=== PATIENT | male | born 1965 ===

== ENCOUNTER 2017-12-13 21:49 | Emergency (ER) | payer SELFPAY ==
[2017-12-13 22:02] VITALS: TEMP 98.4
[2017-12-13] MEDS ORDERED: Sodium Chloride 0.9% 1,000 ML IV STA (22:56)
[2017-12-13] MEDS ORDERED: Insulin Regular 100 units/ml IVP STA (22:56)
--- NOTE | 2017-12-13 23:03 | ED PDOC ---
HPI: Psych/Substance Abuse Time Seen by Provider: 12/13/17 22:22 Chief Complaint (Nursing): Alcohol Ingestion History Per: Patient, EMS Additional Complaint(s): As per triage report pt. was found lying down on a car intoxicated. Pt. admits to drinking beer. Pt. states he has a hx of DM but has not seen his doctor in 3 years as he and has been using only "natural medicine." Offers no complaints. 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 Physical Exam - Reviewed Nursing Documentation Reviewed: Yes Vital Signs Reviewed: Yes - Physical Exam Appears: Positive for: Well, Non-toxic, No Acute Distress Head Exam: Positive for: ATRAUMATIC, NORMAL INSPECTION, NORMOCEPHALIC Skin: Positive for: Normal Color, Warm, DRY Eye Exam: Positive for: EOMI. Negative for: PERRL (R pupil is abnormally shaped and is unreactive to light; L pupil is reactive to light), Nystagmus, Periorbital swelling, Periorbital tenderness, Conjunctival injection (b/l) ENT: Positive for: Normal ENT Inspection, TM Is/Are (no hemotympanum b/l) Neck: Positive for: Normal, Painless ROM Cardiovascular/Chest: Positive for: Regular Rate, Rhythm, Chest Non Tender Respiratory: Positive for: CNT, Normal Breath Sounds Gastrointestinal/Abdominal: Positive for: Normal Exam (no ecchymosis to abdomen) , Soft. Negative for: Tenderness, Guarding, Rebound, Asicites Back: Positive for: Normal Inspection. Negative for: L CVA Tenderness, R CVA Tenderness, Vertebral Tenderness Extremity: Positive for: Normal ROM Neurologic/Psych: Positive for: Alert, Oriented, Other (slurred speech; AOB). Negative for: Aphasia, Facial Droop - Laboratory Results Result Diagrams: 12/13/17 23:20 12/13/17 23:20 - ECG O2 Sat by Pulse Oximetry: 97 - CT Scan/US CT head w/o contrast Other Rad Studies (CT/US): Read By Radiologist (negative) - Progress ED Course And Treament: Labs, CT head w/o contrast, IV NS bolus x 1, insulin 6mg IV ordered. Case d/w Dr. Roamn who agrees with order CT head due to pt.'s abnormal pupil. Pt.'s current intoxicated state makes him an unreliable historian. 0000 Pt. attempting to get up from stretcher with unsteady gait. Multiple attempts verbal de-escalation made without success. Ativan 2mg IM ordered. 0016 Repeat FSBS: 146. 0230 Sleeping comfortably. 0400 Still sleeping comfortably and in no distress. 0600 Sleeping comfortably. Easily arousable. Gait steady unassisted. No slurred speech. Requesting to be discharged. Pt. is clinically sober. Disposition - Clinical Impression Clinical Impression: Alcohol intoxication, Hyperglycemia - Patient ED Disposition Is Patient to be Admitted: No - Disposition Referrals: [facility] [Outside] Disposition: Routine/Home Disposition Time: 06:01 Condition: IMPROVED Additional Instructions: LILIA HAMPTON, thank you for letting us take care of you today. Your provider was Rob Stein MD and you were treated for ETOH. The emergency medical care you received today was directed at your acute symptoms. If you were prescribed any medication, please fill it and take as directed. It may take several days for your symptoms to resolve. Return to the Emergency Department if your symptoms worsen, do not improve, or if you have any other problems. Please contact your doctor or call one of the physicians/clinics you have been referred to that are listed on the Patient Visit Information form that is included in your discharge packet. Bring any paperwork you were given at discharge with you along with any medications you are taking to your follow up visit. Our treatment cannot replace ongoing medical care by a primary care provider outside of the emergency department. Thank you for allowing the [facility] team to be part of your care today. If you had an X-Ray or CT scan: A Radiologist will review the ED reading if any change in treatment is needed we will contact you. If you had a blood, urine, or wound culture: It will take several days for the results, if any change in treatment is needed we will contact you. If you had an STI test: It will take 48 hours for the results. Please call after 1 week if you have not heard back. Instructions: Alcohol Use - When Is Drinking a Problem?, Hyperglycemia, Adult ( [place]) Forms: [employer] ([place]er) Print Language: VIETNAMESE
[2017-12-13] MEDS ORDERED: Insulin Regular 100 units/ml ONE (23:10)
[2017-12-13 23:27] LABS: BASO % 0.7 % (0.0-2.0); EOS # 0.3 K/uL (0.0-0.7); EOS % 4.2 % (0.0-4.0); HEMOGLOBIN 15.1 g/dL (12.0-18.0); LYMPH # 2.1 K/uL (1.0-4.3); LYMPH % 31.2 % (20.0-40.0); MEAN CELL VOLUME 92.1 fl (80.0-94.0); MEAN CORPUSCULAR HEMOGLOBIN 32.5 pg (27.0-31.0); MEAN CORPUSCULAR HGB CONC 35.2 g/dL (33.0-37.0); MEAN PLATELET VOLUME 8.9 fl (7.2-11.7); MONO # 0.5 K/uL (0.0-0.8); MONO % 7.6 % (0.0-10.0); NEUT # 3.8 K/uL (1.8-7.0); NEUT % 56.3 % (50.0-75.0); RBC 4.64 Mil/uL (4.40-5.90); RED CELL DISTRIBUTION WIDTH 12.4 % (11.5-14.5); WHITE BLOOD COUNT 6.7 K/uL (4.8-10.8)
[2017-12-13 23:39] LABS: ALB/GLOB RATIO 1.5 (1.0-2.1); ALBUMIN 4.7 g/dL (3.5-5.0); ALT/SGPT 30 U/L (21-72); AST/SGOT 26 U/L (17-59); BLOOD UREA NITROGEN 8 mg/dl (9-20); CALCIUM 9.1 mg/dL (8.4-10.2); GFR AFRICAN-AMERICAN > 60; GFR NON-AFRICAN AMERICAN > 60
[2017-12-14 00:30] LABS: ABG ALLEN TEST YES; ARTERIAL BLOOD GAS HCO3 22.4 mmol/L (21-28); ARTERIAL BLOOD GAS O2 CAPACITY 18.8 mL/dL (16-24); ARTERIAL BLOOD GAS O2 CONTENT 18.2 ML/dL (15-23); ARTERIAL BLOOD GAS O2 SAT 96.9 % (95-98); ARTERIAL BLOOD GAS PCO2 39 mm/Hg (35-45); ARTERIAL BLOOD GAS PH 7.36 (7.35-7.45); ARTERIAL BLOOD GAS PO2 86 mm/Hg (80-100); ARTERIAL BLOOD GAS TCO2 23.2 mmol/L (22-28)
[2017-12-14 01:35] LABS: URINE BACTERIA RARE (<OCC); URINE BILIRUBIN NEGATIVE (NEGATIVE); URINE BLOOD NEGATIVE (NEGATIVE); URINE CLARITY SLIGHTY-CLOUDY (Clear); URINE COLOR YELLOW (YELLOW); URINE GLUCOSE (UA) >=500 mg/dL (Normal); URINE LEUKOCYTE ESTERASE NEG Leu/uL (Negative); URINE PROTEIN NEGATIVE (NEGATIVE); URINE UROBILINOGEN 0.2-1.0 mg/dL (0.2-1.0)
[2017-12-14 01:57] LABS: BARBITURATES, UR NEGATIVE (NEGATIVE); BENZODIAZEPINES, UR NEGATIVE (NEGATIVE); OPIATES, UR NEGATIVE (NEGATIVE); PHENCYCLIDINE, UR NEGATIVE (NEGATIVE)
[2017-12-14 05:39] VITALS: RESP 18
[2017-12-14 06:14] VITALS: BP 120/80; PULSE 78
--- NOTE | 2017-12-14 09:46 | CT ---
Date of service: 12/14/2017 PROCEDURE: CT HEAD WITHOUT CONTRAST. HISTORY: ETOH, ? fall COMPARISON: None available. TECHNIQUE: Axial computed tomography images were obtained through the head/brain without intravenous contrast. Radiation dose: Total exam DLP = 826.96 mGy-cm. This CT exam was performed using one or more of the following dose reduction techniques: Automated exposure control, adjustment of the mA and/or kV according to patient size, and/or use of iterative reconstruction technique. FINDINGS: HEMORRHAGE: No intracranial hemorrhage. BRAIN: No mass effect or edema. There appears to be some minimal chronic periventricular white matter ischemic changes. Minor age-appropriate volume loss VENTRICLES: Unremarkable. No hydrocephalus. CALVARIUM: Unremarkable. Note made of a right posterior superior parietal as well as left parasagittal frontal scalp scars . PARANASAL SINUSES: Unremarkable as visualized. No significant inflammatory changes. MASTOID AIR CELLS: Unremarkable as visualized. No inflammatory changes. OTHER FINDINGS: None. IMPRESSION: No acute intracranial hemorrhage. Minimal chronic periventricular white matter ischemic changes. Minor age-appropriate volume loss
[2017-12-14 21:29] VITALS: O2SAT 97
== END 2017-12-14 06:31 | disposition home or self-care (01) ==
LOC: H.ER 21:49
DX: F10.129 Alcohol abuse with intoxication, unspecified (principal); E11.65 Type 2 diabetes mellitus with hyperglycemia
CPT/HCPCS: 70450; 80053; 81003; 82803; 82948; 85025; 96361; 96372; 96374; 99284; G0480; J2060; J7030